=== PATIENT | male | born 2000 | race Caucasian/White ===

== ENCOUNTER 2019-08-27 15:02 | Emergency (ER) | payer SELFPAY ==
[~2019-08-27] VITALS: Ht 175.3 cm; Wt 77.3 kg
[~2019-08-27 15:02] MED LIST: ABILIFY 10MG TA10 MG PO; CONCERTA18 MG PO; DAYTRANA PO; ESCITALOPRAM PO; LEXAPRO 5MG5 MG PO; PREDNISONE20 MG PO; RISPERDAL 0.20.25 MG PO
[2019-08-27 15:17] VITALS: BP 122/75; PULSE 61; TEMP 98.2
== END 2019-08-27 17:10 | disposition left against medical advice (07) ==
LOC: COL.ER 15:02
DX: M54.2 Cervicalgia (principal); R42 Dizziness and giddiness

== ENCOUNTER 2019-12-31 19:22 | Emergency (ER) | payer SELFPAY ==
[~2019-12-31] VITALS: Ht 175.3 cm; Wt 77.3 kg
[2019-12-31] MEDS ORDERED: AMOXICILLIN 8751 TAB PO (20:33)
[2019-12-31 20:45] VITALS: BP 116/75; PULSE 74; TEMP 97.8
== END 2019-12-31 20:49 | disposition home or self-care (01) ==
LOC: COL.ER 19:22
DX: H66.92 Otitis media, unspecified, left ear (principal); F17.210 Nicotine dependence, cigarettes, uncomplicated

== ENCOUNTER 2020-01-15 20:23 | Emergency (ER) | payer SELFPAY ==
[~2020-01-15] VITALS: Ht 175.3 cm; Wt 75.0 kg
[~2020-01-15 20:23] MED LIST changes: +AMOXICILLIN 8751 TAB PO
[2020-01-15 20:31] VITALS: TEMP 98.3
[2020-01-15 21:24] LABS: STREP SCREEN NEGATIVE
[2020-01-15 21:46] VITALS: BP 134/87; PULSE 79
== END 2020-01-15 21:44 | disposition home or self-care (01) ==
LOC: COL.ER 20:23
PROVIDERS: Nurse Practitioner
DX: B34.9 Viral infection, unspecified (principal); F17.210 Nicotine dependence, cigarettes, uncomplicated

== ENCOUNTER 2020-03-12 20:51 | Emergency (ER) | payer SELFPAY ==
[~2020-03-12] VITALS: Ht 175.3 cm; Wt 77.3 kg
[2020-03-12 20:57] VITALS: BP 129/73; TEMP 97.5
[2020-03-12 23:59] VITALS: PULSE 84
== END 2020-03-13 | disposition home or self-care (01) ==
LOC: COL.ER 20:51
DX: F41.9 Anxiety disorder, unspecified (principal); Z53.29 Procedure and treatment not carried out because of patient's decision for other reasons

== ENCOUNTER 2021-03-10 10:06 | Emergency (ER) | payer OTHER ==
[~2021-03-10] VITALS: Ht 175.3 cm; Wt 95.5 kg
[2021-03-10 10:20] VITALS: TEMP 97.7
[2021-03-10 10:49] VITALS: BP 126/73; PULSE 73
== END 2021-03-10 10:59 | disposition home or self-care (01) ==
LOC: COL.ER 10:06
DX: U07.1 COVID-19 (principal); F17.210 Nicotine dependence, cigarettes, uncomplicated

== ENCOUNTER 2021-10-19 15:14 | Emergency (ER) | payer OTHER ==
[~2021-10-19] VITALS: Ht 175.3 cm; Wt 86.4 kg
[2021-10-19 15:32] VITALS: BP 123/64; TEMP 97.8
[2021-10-19 16:24] VITALS: PULSE 65
== END 2021-10-19 16:24 | disposition home or self-care (01) ==
LOC: COL.ER 15:14
DX: S63.91XA Sprain of unspecified part of right wrist and hand, initial encounter (principal); Z28.310 Unvaccinated for COVID-19; Y04.8XXA Assault by other bodily force, initial encounter; Y07.430 Stepfather, perpetrator of maltreatment and neglect

== ENCOUNTER 2021-11-22 16:42 | Emergency (ER) | payer OTHER ==
[~2021-11-22] VITALS: Ht 175.3 cm; Wt 86.4 kg
[2021-11-22 17:08] VITALS: TEMP 98
[2021-11-22 19:08] VITALS: BP 131/81; PULSE 81
== END 2021-11-22 19:09 | disposition home or self-care (01) ==
LOC: COL.ER 16:42
DX: S63.8X1A Sprain of other part of right wrist and hand, initial encounter (principal); Z28.310 Unvaccinated for COVID-19; X50.1XXA Overexertion from prolonged static or awkward postures, initial encounter; Y92.59 Other trade areas as the place of occurrence of the external cause; Y99.0 Civilian activity done for income or pay

== ENCOUNTER 2022-12-20 22:53 | Emergency (ER) | payer OTHER ==
[~2022-12-20] VITALS: Ht 175.3 cm; Wt 95.5 kg
[~2022-12-20 22:53] MED LIST changes: +CEPACOL SORE TH1 LO8 MM
[2022-12-20 22:57] VITALS: TEMP 98.1
[2022-12-20 23:59] VITALS: BP 117/71; PULSE 63
== END 2022-12-20 23:59 | disposition home or self-care (01) ==
LOC: COL.ER 22:53
DX: S60.211A Contusion of right wrist, initial encounter (principal); F17.210 Nicotine dependence, cigarettes, uncomplicated; Y04.8XXA Assault by other bodily force, initial encounter; Y92.59 Other trade areas as the place of occurrence of the external cause; Y99.0 Civilian activity done for income or pay

== ENCOUNTER 2023-03-15 23:25 | Emergency (ER) | payer OTHER ==
[~2023-03-15] VITALS: Ht 175.3 cm; Wt 95.5 kg
[2023-03-15 23:33] VITALS: BP 145/70; PULSE 71; TEMP 98
[2023-03-15] MEDS ORDERED: IBU800 M1 PO (23:52)
== END 2023-03-16 00:20 | disposition home or self-care (01) ==
LOC: COL.ER 23:25
DX: M25.562 Pain in left knee (principal)

== ENCOUNTER → 2023-03-16 | Outpatient (CLI) | payer OTHER ==
[~2023-03-16] MED LIST changes: +IBU800 M1 PO
== END ==
LOC: COL.RAD 05:30
DX: M79.605 Pain in left leg (principal)